=== PATIENT | male | born 1995 | race American Indian/Alaskan Native ===

== ENCOUNTER 2018-12-09 19:41 | Emergency (ER) | payer OTHER ==
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
[2018-12-09 20:05] LABS: Basophils # (Auto) 0.1 K/mm3 (0.0-0.1); Basophils % (Auto) 1.1 % (0.0-1.8); Eosinophils # (Auto) 0.1 K/mm3 (0.0-0.4); Eosinophils % (Auto) 1.7 % (0.0-4.3); Hematocrit 38.5 % (35.5-45.6); Lymphocytes # (Auto) 2.3 K/mm3 (1.2-5.4); Lymphocytes % (Auto) 43.4 % (13.4-35.0); Mean Corpuscular HGB Conc 34 % (32-34); Mean Corpuscular Volume 93 fl (84-94); Monocytes # (Auto) 0.5 K/mm3 (0.0-0.8); Monocytes % (Auto) 9.3 % (0.0-7.3); Platelet Count 218 K/mm3 (140-440); Red Blood Count 4.15 M/mm3 (3.65-5.03); Red Cell Distribution Width 13.8 % (13.2-15.2)
[2018-12-09 20:18] LABS: INR 0.97 (0.87-1.13)
[2018-12-09 20:19] LABS: Partial Thromboplastin Time 25.7 Sec. (24.2-36.6)
[2018-12-09] MEDS ORDERED: ZOFRAN IV ONE (20:23)
[2018-12-09] MEDS ORDERED: DILAUDID IV ONE ×2 (20:23→21:50)
[2018-12-09 20:26] LABS: Alanine Aminotransferase 21 units/L (7-56); Albumin 4.8 g/dL (3.9-5); BUN/Creatinine Ratio 17; Blood Urea Nitrogen 15 mg/dL (9-20); Calcium 9.2 mg/dL (8.4-10.2); Hemolysis Index 16
[2018-12-09] MEDS ORDERED: CLEOCIN 900 MG/50 mL 900 MG/50 ML BAG IV ONE (20:31)
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
[2018-12-09 21:03] VITALS: BP 142/76
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
== END 2018-12-09 22:29 | disposition other institution (70) ==
LOC: ED 19:41
DX: S02.609A Fracture of mandible, unspecified, initial encounter for closed fracture (principal); S70.01XA Contusion of right hip, initial encounter; F17.200 Nicotine dependence, unspecified, uncomplicated; Y09 Assault by unspecified means; Y93.89 Activity, other specified; Y92.89 Other specified places as the place of occurrence of the external cause; Y99.8 Other external cause status
CPT/HCPCS: 36415; 70450; 70486; 71045; 72125; 73502; 80053; 85025; 85610; 85730; 86850; 86900; 86901; 99285; G0480; J1170; J2405; 80320